=== PATIENT | female | born 1975 | race Caucasian/White ===

== ENCOUNTER 2020-03-29 18:10 | Emergency (ER) | payer BC ==
[~2020-03-29 18:10] MED LIST: Iopamidol 370 76% 100 ML VIAL ONE
[2020-03-29 18:41] LABS: #Lymphocytes 1.8 thou/uL (1.20-3.40); #Monocytes 0.6 thou/uL (0.11-0.59); #Neutrophils 3.2 thou/uL (1.40-6.50); %Basophils 0.2 % (0.0-1.0); %Eosinophils 0.8 % (0.0-10.0); %Lymphocytes 31.6 % (21.0-51.0); %Monocytes 10.1 % (0.0-10.0); %Neutrophils 57.3 % (42.0-75.0); Hemoglobin 10.9 g/dL (12.0-16.0); Mean Corpuscular HGB CONC 32.3 g/dL (32.0-36.0); Mean Corpuscular Hemoglobin 28.4 pg (27.0-31.0); Mean Corpuscular Volume 87.9 fL (78.0-98.0); Mean Platelet Volume 8.2 fL (7.4-10.4); Platelet Count 212 thou/uL (130-400); RBC Distribution Width 13.9 % (11.5-14.5); Red Blood Cell (RBC) Count 3.82 mill/uL (4.20-5.40); White Blood Cell (WBC) Count 5.7 thou/uL (4.8-10.8)
[2020-03-29 18:49] LABS: Bacteria/HPF None Seen HPF (None Seen); Bilirubin Negative (Negative); Blood, Urine Negative (Negative); Clarity Clear (Clear); Glucose, Urine (Dipstick) Normal (Negative); Ketone, Urine Negative (Negative); Leukocyte Negative Leu/uL (Negative); Nitrite Negative (Negative); Pregnancy Test - Urine (BHCG) Negative (Negative); Pregu Control Background? CLEAR/WHITE (CLR/WHITE); Pregu Control Bar Appear? YES (CONTROL BAR); Protein, Urine (Dipstick) 30 mg/dL (Neg-Trace); RBC/HPF 0-3 HPF (0-3); Specific Gravity 1.034 (1.002-1.036); Specific Gravity, Urine 1.034 (1.002-1.036); Urobilinogen 3 mg/dL (Less than 2); WBC/HPF 0-3 HPF (0-3); pH, Urine 5.5 (5.0-9.0)
[2020-03-29] MEDS ORDERED: Ketorolac Tromethamine 30 MG/ML VIAL ONE (19:18)
[2020-03-29 19:39] LABS: ALT (SGPT) 11 U/L (8-55); AST (SGOT) 24 U/L (5-34); Albumin 4.2 g/dL (3.5-5.0); Alkaline Phosphatase 44 U/L (40-110); Anion Gap 12 mmol/L (10-20); BUN (Urea Nitrogen) 12 mg/dL (7.0-18.7); Bilirubin, Total 0.3 mg/dL (0.2-1.2); Calc. Creatinine Clearance 0 mL/min (70-130); Calcium 8.9 mg/dL (7.8-10.44); Carbon Dioxide 26 mmol/L (22-29); Chloride 102 mmol/L (98-107); Estimated GFR-MDRD Greater than 90; Globulin 3.3 g/dL (2.4-3.5); Glucose 106 mg/dL (70-105); Lipase 29 U/L (8-78); Potassium 3.8 mmol/L (3.5-5.1); Protein, Total 7.5 g/dL (6.0-8.3); Sodium 136 mmol/L (136-145)
--- NOTE | 2020-03-29 21:38 | CT ---
CT ABDOMEN AND PELVIS PERFORMED WITH CONTRAST ENHANCEMENT: History: Right lower quadrant abdomen pain for approximately 2 weeks. No vomiting, fever, or shortnes s of breath. Comparison: 11-08-16 FINDINGS: Lung bases are clear. Small hypodensities within the liver were noted on the prior examination and have a similar appearanc e and appear to represent cysts. In addition, similar to the prior examination, the patient has parap ortal edema, perhaps slightly more pronounced on this exam, but the difference may just be technical. A large splenic cyst is noted measuring in the 6 mm range, stable. The pancreas region is unremarkab le. Gallbladder shows what may be a small amount of fluid and perhaps some gallbladder wall thickenin g. Right and left adrenal glands and right and left kidneys are normal in size. No evidence of pyeloneph ritis. No significant periaortic or any mesenteric adenopathy. There is a lack of intraabdominal fat. There is a moderate amount of stool present within the colon. CT OF PELVIS PERFORMED WITH CONTRAST ENHANCEMENT: Lack of intraabdominal fat makes it very difficult to identify an appendix. I do not see any definiti ve feature that would suggest appendicitis. There appear to be some follicles in the adnexal region b ut no significant free fluid. Fullness to the lower uterine segment is a stable finding. IMPRESSION: 1. Moderate paraportal edema. This can have multiple causes. Etiology of this is unclear in this patient. It is actually a similar appearance to that seen on the 2017 exam. 2. Questionable slight gallbladder wall thickening versus small amount of pericholecystic fluid. 3. Moderate amount of stool throughout the colon. Lack of intraabdominal fat makes it difficult to definitively identify an appendix. POS: OFF
== END 2020-03-29 22:34 | disposition home or self-care (01) ==
LOC: ERS 18:10
DX: R10.31 Right lower quadrant pain (principal); M19.90 Unspecified osteoarthritis, unspecified site; F41.9 Anxiety disorder, unspecified; F32.9 Major depressive disorder, single episode, unspecified; Z79.899 Other long term (current) drug therapy
CPT/HCPCS: 36415; 74177; 80053; 81003; 81015; 81025; 83690; 85025; 96374; J1885; Q9967